=== PATIENT | male | born 1955 | race Caucasian/White ===

== ENCOUNTER 2017-11-12 14:27 | Inpatient (IN) | payer OTHER ==
[~2017-11-12] VITALS: Ht 175.3 cm; Wt 74.2 kg
[2017-11-12 14:31] VITALS: Ht 175.3 cm; Wt 74.2 kg
[2017-11-12 15:21] LABS: CALCIUM 8.9 mg/dL (8.5-10.1); CARBON DIOXIDE 29.9 mmol/L (21-32); CREATININE SERUM 2.1 mg/dL (0.7-1.3)
[2017-11-12 15:22] LABS: BASOPHIL % 0.4 % (0-2); PLATELET COUNT 168 x10^3mcL (130-400); RED CELL DISTRIBUTION WIDTH 13.7 % (11.5-14.5)
[2017-11-12 15:27] LABS: ALBUMIN 3.8 g/dL (3.4-5.0); BILIRUBIN TOTAL 0.43 mg/dL (0.20-1.00); TOTAL PROTEIN, SERUM 7.5 g/dL (6.4-8.2)
[2017-11-12] MEDS ORDERED: COZAAR100 MG PO (15:57)
[2017-11-12] MEDS ORDERED: ALTOPREV40 M2 PO (15:58)
[2017-11-12] MEDS ORDERED: CHLORTHALIDONE25 MG PO (15:58)
[2017-11-12] MEDS ORDERED: METOPROLOL SUCC50 M2 PO (15:58)
[2017-11-12] MEDS ORDERED: PRAZOSIN HYDROCH1 MG PO (15:58)
[2017-11-12] MEDS ORDERED: KLOR-CON M2020 MEQ PO (15:58)
[2017-11-12 16:40] VITALS: BP 132/81
[2017-11-12 17:11] VITALS: BP 132/81
[2017-11-12 18:00] LABS: MAGNESIUM 2.5 mg/dL (1.8-2.4); PHOSPHOROUS 3.4 mg/dL (2.5-4.9)
[2017-11-12 18:07] LABS: CHOLESTEROL/HDL RATIO 3.3
[2017-11-12 18:15] LABS: FREE T4 1.2 ng/dL (0.76-1.46); FREE THYROXINE INDEX 3.2 ug/dL (1.4-4.5); T4(THYROXINE) 8.9 ug/dL (4.7-13.3)
[2017-11-12 18:19] LABS: T3 TOTAL 1.31 ng/mL
[2017-11-12 21:11] VITALS: BP 124/84
[2017-11-12 21:35] VITALS: BP 124/84
[2017-11-13] VITALS (8 sets, daily range): BP systolic 97–116; BP diastolic 65–87
[2017-11-13 03:56] LABS: microscopic required? NO
[2017-11-13 04:08] LABS: UA SPECIFIC GRAVITY 1.015 (1.005-1.035); urine erythrocyte NEGATIVE (NEGATIVE)
[2017-11-13 04:16] LABS: AMPHETAMINE QUAL UR NONE DETECTED (NEG <=1000)
[2017-11-13 07:17] LABS: CALCIUM 8.5 mg/dL (8.5-10.1); CARBON DIOXIDE 27.8 mmol/L (21-32); CREATININE SERUM 1.4 mg/dL (0.7-1.3); MAGNESIUM 2.5 mg/dL (1.8-2.4); PHOSPHOROUS 3.2 mg/dL (2.5-4.9); POTASSIUM SERUM 3.8 mmol/L (3.5-5.1)
[2017-11-13 08:06] LABS: BASOPHIL % 0.2 % (0-2); PLATELET COUNT 144 x10^3mcL (130-400); RED CELL DISTRIBUTION WIDTH 13.7 % (11.5-14.5)
[2017-11-14] VITALS (9 sets, daily range): BP systolic 96–139; BP diastolic 69–94
[2017-11-14 07:23] LABS: BASOPHIL % 0.1 % (0-2); RED CELL DISTRIBUTION WIDTH 13.7 % (11.5-14.5)
[2017-11-14 07:24] LABS: PLATELET COUNT 123 x10^3mcL (130-400)
[2017-11-14 07:37] LABS: CALCIUM 8.2 mg/dL (8.5-10.1); CARBON DIOXIDE 25.9 mmol/L (21-32); CREATININE SERUM 1.3 mg/dL (0.7-1.3); MAGNESIUM 1.9 mg/dL (1.8-2.4); POTASSIUM SERUM 3.6 mmol/L (3.5-5.1)
[2017-11-14] MEDS ORDERED: TOP50 PO (18:01)
[2017-11-14] MEDS ORDERED: DILTIAZEM30 M1 PO (18:02)
== END 2017-11-14 20:10 | disposition home or self-care (01) | DRG 201 ==
LOC: ED 14:27 → DU 15:51
PROVIDERS: Emergency Medicine; Student in an Organized Health Care Education/Training Program
DX: I48.91 Unspecified atrial fibrillation (principal); N17.0 Acute kidney failure with tubular necrosis; I10 Essential (primary) hypertension; N40.0 Benign prostatic hyperplasia without lower urinary tract symptoms; E78.00 Pure hypercholesterolemia, unspecified; E78.5 Hyperlipidemia, unspecified; R73.03 Prediabetes; Z53.29 Procedure and treatment not carried out because of patient's decision for other reasons; E83.42 Hypomagnesemia
CPT/HCPCS: 83880; 84439; G0480; J1644; J1650; J3475; J3490; J7030; J7040; Q0092